=== PATIENT | female | born 1980 | race Caucasian/White ===

== ENCOUNTER 2020-06-12 15:33 | Outpatient (CLI) | payer BC, SELFPAY ==
[2020-06-12 16:22] LABS: SARS-CoV-2 Ag Negative (Negative)
== END 2020-06-12 15:34 | disposition home or self-care (01) ==
LOC: CHSLAB 15:35
PROVIDERS: PCP Internal Medicine; Visit Provider Internal Medicine
DX: Z20.828 Contact with and (suspected) exposure to other viral communicable diseases (principal)
CPT/HCPCS: 87426

== ENCOUNTER 2020-08-27 16:22 | Outpatient (CLI) | payer BC, SELFPAY ==
[2020-08-27 17:00] LABS: Anion Gap 9 mmol/L (8-16); Blood Urea Nitrogen 13 mg/dL (7-17); Calcium 9.6 mg/dL (8.4-10.2); Carbon Dioxide 26 mmol/L (22-30); Chloride 104 mmol/L (98-107); Estimated Glomerular Filt Rate > 60; Glucose 81 mg/dL (65-105); Sodium 139 mmol/L (137-145)
[2020-08-27 17:03] LABS: Hemoglobin A1C 4.6 % (<5.7)
[2020-08-27 17:31] LABS: Vitamin D 25 Hydroxy 30.2 ng/mL
[2020-08-30 04:10] LABS: Insulin Level Total 2.5 uIU/mL (<=19.6)
[2020-08-30 08:00] LABS: FSH 2.9 mIU/mL (***); LH 0.6 mIU/mL (***)
[2020-08-30 14:13] LABS: Testosterone Total 17 ng/dL (2-45)
== END 2020-08-27 16:23 | disposition home or self-care (01) ==
LOC: ANHLAB 16:23
PROVIDERS: PCP Internal Medicine; Visit Provider Obstetrics & Gynecology
DX: N95.1 Menopausal and female climacteric states (principal)
CPT/HCPCS: 36415; 80048; 82306; 83001; 83002; 83036; 83525; 84403; 84436; 84443

== ENCOUNTER 2021-05-09 17:11 | Outpatient (CLI) | payer BC, SELFPAY ==
[2021-05-09 18:13] LABS: Influenza A QL RT-PCR Negative (Negative); Influenza B QL RT-PCR Negative (Negative); SARS-CoV-2 RNA PCR Positive (Negative)
== END 2021-05-09 17:12 | disposition home or self-care (01) ==
LOC: CHSLAB 17:12
PROVIDERS: PCP Internal Medicine; Visit Provider Internal Medicine
DX: U07.1 COVID-19 (principal)
CPT/HCPCS: 87502; C9803; U0003; U0005

== ENCOUNTER 2022-01-29 13:39 | Outpatient (CLI) | payer BC, SELFPAY ==
[2022-01-29 14:52] LABS: SARS-CoV-2 RNA PCR Negative (Negative)
== END 2022-01-29 13:40 | disposition home or self-care (01) ==
LOC: CHSLAB 13:41
PROVIDERS: PCP Internal Medicine; Visit Provider Internal Medicine
DX: R05.9 Cough, unspecified (principal); J06.9 Acute upper respiratory infection, unspecified; Z20.822 Contact with and (suspected) exposure to COVID-19
CPT/HCPCS: C9803; U0003; U0005

== ENCOUNTER 2024-01-10 13:04 | Outpatient (CLI) | payer BC, SELFPAY ==
--- NOTE | ~2024-01-10 | MM_ITS ---
EXAMINATION: MM screening pedro BI w kailey HISTORY: Screening TECHNIQUE: Craniocaudal and mediolateral oblique 3-D tomosynthesis images were obtained and synthetic 2-D images were generated. CAD analysis was submitted and interpreted. COMPARISON: No prior mammogram is available for comparison at this institution. BREAST PARENCHYMAL COMPOSITION: There are scattered areas of fibroglandular density. FINDINGS: There is no evidence of suspicious mass, calcification, or architectural distortion to sugg est malignancy in either breast. There has been no suspicious interval change. IMPRESSION: 1. No mammographic evidence of malignancy. 2. Recommend routine screening mammography in one year. BI-RADS Category 1: Negative Reviewed, dictated and finalized at location B.
== END 2024-01-10 13:05 | disposition home or self-care (01) ==
LOC: CHSIMG 13:06
PROVIDERS: PCP Nurse Practitioner; Visit Provider Nurse Practitioner
DX: Z12.31 Encounter for screening mammogram for malignant neoplasm of breast (principal)
CPT/HCPCS: 77063; 77067

== ENCOUNTER 2024-05-24 09:07 | Emergency (ER) | payer BC, SELFPAY ==
[2024-05-24] VITALS (40 sets, daily range): BP systolic 100–145; BP diastolic 52–110; PULSE 62–87; RESP 14–116; TEMP 36.2–36.6; O2SAT 95–100
--- NOTE | ~2024-05-24 | XR_ITS ---
XR chest 1V portable Ordering provider: Jay Romo MD History: 43 years Female with . cough, SOB, weakness, chest tightness, fever X 2-3 days . Comparison: None. FINDINGS: MEDIASTINUM: The cardiac silhouette is not enlarged. LUNGS: No effusions or pneumothorax. Opacification in the right lower lobe suggestive of atelectasis versus pneumonia. OTHER: No free air under the diaphragm. IMPRESSION: Opacification lower lobe suggestive of atelectasis versus pneumonia. Reviewed, dictated and finalized at location A. AND PENCILS REPAIRER
--- NOTE | 2024-05-24 09:30 | ED_ITS ---
HPI - General Adult General Chief complaint: Dizziness Stated complaint: DIFFICULTY BREATHING Time Seen by Provider: 05/24/24 09:16 Source: patient Mode of arrival: ambulatory Limitations: no limitations History of Present Illness HPI narrative: 43-year-old female with a history of anxiety / depression presents to the ED with a 2 day history of -- chest discomfort Which is pleuritic in type. -- shortness of breath -- low-grade fever -- cough which is productive of mucoid purulent sputum Her sister and her daughter have been sick with an upper respiratory tract infection. the patient has been using an inhaler the past few days secondary to shortness of breath. Onset (ago): day(s) ( Two days) Associated symptoms: chest pain, cough, fever/chills and shortness of breath Related Data Home Medications Medication Instructions Recorded Confirmed buspirone 10 mg tablet 10 mg PO DAILY PRN Anxiety 05/19/19 11/08/20 escitalopram oxalate 20 mg tablet 20 mg PO DAILY 05/19/19 11/08/20 loratadine 10 mg tablet (Claritin) 10 mg PO DAILY 05/19/19 11/08/20 esomeprazole magnesium 20 mg 20 mg PO DAILY 08/27/20 11/08/20 capsule,delayed release Allergies Allergy/AdvReac Type Severity Reaction Status Date / Time morphine Allergy Unknown REDNESS Verified 05/24/24 09:27 AND WELTS ON ARM OF IV SITE Review of Systems Review of Systems: All systems reviewed & are unremarkable except as noted in HPI and below Constitutional: Constitutional: Reports as per HPI, Reports no additional constitutional complaints and Reports fever(s) Eyes: Eyes: Reports as per HPI and Reports no additional eye complaints ENT: Reports system reviewed and no additional complaints, except as documented, Reports as per HPI and Reports sore throat Cardiovascular: Cardiovascular: Reports as per HPI and Reports chest pain Respiratory: Respiratory: Reports as per HPI, Reports no additional respiratory complaints, Reports cough and Reports dyspnea Gastrointestinal: Gastrointestinal: Reports as per HPI and Reports no additional gastrointestinal complaints Genitourinary: Genitourinary: Reports no additional female genitourinary complaints and Reports as per HPI Musculoskeletal: Musculoskeletal: Reports no additional musculoskeletal complaints and Reports as per HPI Integumentary/Breasts: Skin/Breast: Reports system reviewed and no additional complaints, except as docu and Reports as per HPI Neurologic: Reports system reviewed and no additional complaints, except as documented and Reports as per HPI Psychiatric: Psychiatric: Reports no additional psychiatric complaints, Reports as per HPI and Reports anxiety Endocrine: Endocrine: Reports no additional endocrine complaints and Reports as per HPI Hematologic/Lymphatic: Hematologic/Lymphatic: Reports no additional hematologic/lymphatic complaints and Reports as per HPI Allergic/Immunologic: Allergic/Immunologic: Reports no additional allergic/immunologic complaints and Reports as per HPI PMFSH Past Medical History Medical History Anxiety Depression Missed x2 Obesity Vaginal delivery x1 Surgical History Surgical History History of dilation and curettage x2 History of endometrial ablation 05-26-19 History of tubal ligation Previous section x 3 Family History Family History Grandparent Diabetes mellitus Son Cerebrovascular accident in utero Social History Social History Smoking status: Never smoker Second hand tobacco smoke exposure: No Alcohol intake: current Substance use: unknown Exam Narrative: afebrile. Oxygen saturation of 100% on room air with a respiratory rate of 24. Blood pressure stable. Const: General: no acute distress Nutritional Appearance: well nourished Orientation/consciousness: patient oriented x3 Limitations: no limitations HENMT: Head: normal to inspection Ears: external ears normal Face/Nose/Sinus: Normal external nose present Face and sinus: normal facial exam Mouth: Yes Normal oral and palatal mucosa present Throat: posterior oropharynx normal Eyes: Conjunctivae: conjunctivae normal Pupils: Equal, round and reactive pupils present EOM: EOMs intact bilaterally Direct Ophthalmoscopy: no photophobia Neck: Neck: normal visual inspection, no lymphadenopathy and no meningeal signs Chest: Chest palpation & inspection: normal inspection of the chest Resp: Effort & Inspection: normal respiratory effort Auscultation: rhonchi Cardio: Rate: regular rate Rhythm: regular rhythm GI: GI Palp: Yes Soft to palpation Auscultation: normal bowel sounds : General: Yes no CVA tenderness Back/Spine/Pelvis: Back: no CVA tenderness Skin: General skin exam: normal color Rashes: no rashes Wounds: no wounds Neuro: General: patient oriented x3, moves all extremities, no meningeal signs, no focal motor deficits and CN's II-XI intact bilaterally Cranial nerves: Yes Nystagmus not present Speech: normal speech Gait exam (Neuro): Normal gait present Extrem: General: normal to inspection and no clubbing, cyanosis or edema Psych: Mental Status: mental status grossly normal Affect: normal affect Attitude: cooperative Course Course Emergency Course: Upper respiratory infection bronchitis with bronchospasm right lower lobe pneumonia Vital Signs Vital signs: Vital Signs Temperature 36.2 C L 05/24/24 09:07 Pulse Rate 72 05/24/24 09:07 Respiratory Rate 24 H 05/24/24 09:07 Blood Pressure 114/69 05/24/24 09:07 Pulse Oximetry 100 05/24/24 09:07 Oxygen Delivery Room Air 05/24/24 09:07 Temperature 36.2 C L 05/24/24 09:07 Pulse Rate 65 05/24/24 12:45 Respiratory Rate 16 05/24/24 12:31 Blood Pressure 102/52 L 05/24/24 12:31 Pulse Oximetry 100 05/24/24 12:31 Oxygen Delivery Room Air 05/24/24 09:25 Medical Decision Making MDM Narrative Medical decision making narrative: upper respiratory tract infection right lower lobe pneumonia bronchospasm Differential Diagnosis Differential Diagnosis: atelectasis. Aspiration pneumonia Medical Records Medical records reviewed: Yes I reviewed the external patient's medical records. Vital Signs Vital Signs: Vital Signs Temperature 36.2 C L 05/24/24 09:07 Pulse Rate 72 05/24/24 09:07 Respiratory Rate 24 H 05/24/24 09:07 Blood Pressure 114/69 05/24/24 09:07 Pulse Oximetry 100 05/24/24 09:07 Oxygen Delivery Room Air 05/24/24 09:07 Temperature 36.2 C L 05/24/24 09:07 Pulse Rate 65 05/24/24 12:45 Respiratory Rate 16 05/24/24 12:31 Blood Pressure 102/52 L 05/24/24 12:31 Pulse Oximetry 100 05/24/24 12:31 Oxygen Delivery Room Air 05/24/24 09:25 Lab Data Lab results reviewed: Yes I reviewed the patient's lab results. 05/24/24 09:52 05/24/24 09:52 Labs: Lab Results 05/24/24 05/24/24 05/24/24 Range/Units 09:44 09:50 09:52 WBC 5.1 (4.8-10.8) K/mm3 RBC 5.00 (4.20-5.40) M/mm3 Hgb 15.6 H (12.0-15.0) g/dL Hct 42.1 (35.0-49.0) % MCV 84.2 (78.0-102.0) fL MCH 31.2 H (27.0-31.0) pg MCHC 37.1 H (32-36) g/dL RDW 11.7 (11.6-14.4) % Plt Count 169 (150-420) K/mm3 MPV 8.9 L (9.2-11.8) fl Immature Gran % (Auto) 0.4 H (0.0-0.0) % Neut % (Auto) 79.8 H (50.0-70.0) % Lymph % (Auto) 13.0 L (18.0-42.0) % [place] % (Auto) 5.8 (2.0-11.0) % Eos % (Auto) 0.4 L (1.0-6.0) % Baso % (Auto) 0.6 (0.0-1.0) % Lymph # (Auto) 0.67 L (1.10-4.50) K/mm3 [place] # (Auto) 0.30 (0.10-0.90) K/mm3 Eos # (Auto) 0.02 (0.02-0.50) K/mm3 Baso # (Auto) 0.03 (0.00-0.10) K/mm3 Abs Immat Gran (auto) 0.02 H (0.00-0.00) K/mm3 Absolute Neuts (auto) 4.10 (1.70-7.20) K/mm3 Absolute Nucleated RBC 0.00 (0.00-0.00) K/mm3 Nucleated RBC % 0.0 (0-0.0) % Sodium 140 (136-145) mmol/L Potassium 3.1 L (3.5-5.1) mmol/L Chloride 102 (98-108) mmol/L Carbon Dioxide 25 (21-32) mmol/L Anion Gap 13 H (4-12) mmol/L BUN 7 (7-18) mg/dL Creatinine 0.91 (0.55-1.02) mg/dL Estim Creat Clear Calc 65 ml/min Estimated GFR > 60 (59 - ) Glucose 90 (70-99) mg/dL Calculated Osmolality 288 (285-295) mOsm/kg Lactic Acid 2.7 H (0.4-2.0) mmol/L Calcium 9.4 (8.5-10.1) mg/dL Total Bilirubin 0.8 (0.00-1.00) mg/dL AST 11 L (15-37) U/L ALT 18 (14-59) U/L Alkaline Phosphatase 72 (46-116) U/L Troponin I < 4.0 (0.00-60.4) ng/L NT-Pro-B Natriuret Pep 146 H (0-125) pg/mL Total Protein 7.0 (6.4-8.2) g/dL Albumin 3.6 (3.4-5.0) g/dL Lipase 21 (16-77) U/L Influenza A (RT-PCR) Negative (Negative) Influenza B (RT-PCR) Negative (Negative) RSV (RT-PCR) Negative (Negative) SARS-CoV-2 RNA (RT-PCR) Negative (Negative) Group A Strep (PCR) Not detected (Negative) 05/24/24 Range/Units 12:59 WBC (4.8-10.8) K/mm3 RBC (4.20-5.40) M/mm3 Hgb (12.0-15.0) g/dL Hct (35.0-49.0) % MCV (78.0-102.0) fL MCH (27.0-31.0) pg MCHC (32-36) g/dL RDW (11.6-14.4) % Plt Count (150-420) K/mm3 MPV (9.2-11.8) fl Immature Gran % (Auto) (0.0-0.0) % Neut % (Auto) (50.0-70.0) % Lymph % (Auto) (18.0-42.0) % [place] % (Auto) (2.0-11.0) % Eos % (Auto) (1.0-6.0) % Baso % (Auto) (0.0-1.0) % Lymph # (Auto) (1.10-4.50) K/mm3 [place] # (Auto) (0.10-0.90) K/mm3 Eos # (Auto) (0.02-0.50) K/mm3 Baso # (Auto) (0.00-0.10) K/mm3 Abs Immat Gran (auto) (0.00-0.00) K/mm3 Absolute Neuts (auto) (1.70-7.20) K/mm3 Absolute Nucleated RBC (0.00-0.00) K/mm3 Nucleated RBC % (0-0.0) % Sodium (136-145) mmol/L Potassium (3.5-5.1) mmol/L Chloride (98-108) mmol/L Carbon Dioxide (21-32) mmol/L Anion Gap (4-12) mmol/L BUN (7-18) mg/dL Creatinine (0.55-1.02) mg/dL Estim Creat Clear Calc ml/min Estimated GFR (59 - ) Glucose (70-99) mg/dL Calculated Osmolality (285-295) mOsm/kg Lactic Acid Pending (0.4-2.0) mmol/L Calcium (8.5-10.1) mg/dL Total Bilirubin (0.00-1.00) mg/dL AST (15-37) U/L ALT (14-59) U/L Alkaline Phosphatase (46-116) U/L Troponin I (0.00-60.4) ng/L NT-Pro-B Natriuret Pep (0-125) pg/mL Total Protein (6.4-8.2) g/dL Albumin (3.4-5.0) g/dL Lipase (16-77) U/L Influenza A (RT-PCR) (Negative) Influenza B (RT-PCR) (Negative) RSV (RT-PCR) (Negative) SARS-CoV-2 RNA (RT-PCR) (Negative) Group A Strep (PCR) (Negative) Discharge Plan Discharge Clinical Impression: Acute upper respiratory infection Pneumonia Qualifiers: Pneumonia type: due to unspecified organism Laterality: right Lung location: lower lobe of lung Qualified Code(s): J18.9 - Pneumonia, unspecified organism Patient Disposition: Home, Self-Care Condition: Stable Instructions: Antibiotic Form, Pneumonia (ED) Additional Instructions: advised the patient to stop escitalopram. Patient Language: Citizen Of [place] Prescriptions: New amoxicillin 500 mg tablet 1,000 mg PO TID Qty: 42 0RF azithromycin [Zithromax] 250 mg tablet 250 mg PO DAILY 4 Days Qty: 4 0RF Rx Instructions: start on day 2 of therapy No Action esomeprazole magnesium 20 mg capsule,delayed release(DR/EC) 20 mg PO DAILY buspirone 10 mg tablet 10 mg PO DAILY PRN (Reason: Anxiety) loratadine [Claritin] 10 mg Tablet 10 mg PO DAILY escitalopram oxalate 20 mg tablet 20 mg PO DAILY norgestimate-ethinyl estradiol [Tri-Linyah] 0.18/0.215/0.25 mg-35 mcg (28) tablet 1 tablet PO DAILY Qty: 84 0RF Follow-up/Referrals: Мария,Ashanti Jason MUSIC COPYIST [Primary Care Provider] - Time of Disposition: 13:27
--- NOTE | 2024-05-24 09:43 | ECG_ITS ---
Test Date: 2024-05-24 10:08:06 Measurements Intervals [place] Rate: 74 P: 47 MN: 120 QRS: 64 QRSD: 101 T: 47 QT: 422 QTc: 471 Interpretive Statements SINUS RHYTHM CONSIDER HIGH LATERAL INFARCT, AGE INDETERMINATE BASELINE ARTIFACT- I, II, III, AVF, V1-V3 ABNORMAL ECG No previous ECG available for comparison Electronically Signed On 05-24-2024 10:25:47 BOLT MAN by Gurvinder Herrera D.O.
[2024-05-24] MEDS: IPRATROPIUM 0.5 MG/ALBUTEROL SULFATE 2.5 MG AMPUL.NEB 3 ML INHALATION (09:57)
[2024-05-24 10:01] LABS: Basophils Absolute Auto 0.03 K/mm3 (0.00-0.10); Basophils Percent Auto 0.6 % (0.0-1.0); Eosinophils Absolute Auto 0.02 K/mm3 (0.02-0.50); Eosinophils Percent Auto 0.4 % (1.0-6.0); Hematocrit 42.1 % (35.0-49.0); Hemoglobin 15.6 g/dL (12.0-15.0); Immature Granulocyte Absolute 0.02 K/mm3 (0.00-0.00); Immature Granulocyte Percent A 0.4 % (0.0-0.0); Lymphocytes Absolute Auto 0.67 K/mm3 (1.10-4.50); Mean Corpuscular HGB Conc 37.1 g/dL (32-36); Mean Corpuscular Hemoglobin 31.2 pg (27.0-31.0); Mean Corpuscular Volume 84.2 fL (78.0-102.0); Mean Platelet Volume 8.9 fl (9.2-11.8); Monocytes Percent Auto 5.8 % (2.0-11.0); Neutrophils Percent Auto 79.8 % (50.0-70.0); Platelet Count Result 169 K/mm3 (150-420); Red Cell Distribution Width 11.7 % (11.6-14.4); White Blood Count 5.1 K/mm3 (4.8-10.8)
[2024-05-24 10:18] LABS: Lactic Acid Reflex 2.7 mmol/L (0.4-2.0)
[2024-05-24 10:22] LABS: Alanine Aminotransferase 18 U/L (14-59); Albumin Level 3.6 g/dL (3.4-5.0); Alkaline Phosphatase 72 U/L (46-116); Anion Gap 13 mmol/L (4-12); Aspartate Amino Transferase 11 U/L (15-37); Bilirubin,Total 0.8 mg/dL (0.00-1.00); Blood Urea Nitrogen 7 mg/dL (7-18); Calcium 9.4 mg/dL (8.5-10.1); Carbon Dioxide 25 mmol/L (21-32); Chloride 102 mmol/L (98-108); Estimated CRCL calculation 65 ml/min; Estimated Glomerular Filt Rate > 60; Glucose 90 mg/dL (70-99); Lipase 21 U/L (16-77); NT Pro B Type Natriuretic Pept 146 pg/mL (0-125); Osmolality Calculated 288 mOsm/kg (285-295); Potassium 3.1 mmol/L (3.5-5.1); Sodium 140 mmol/L (136-145)
[2024-05-24 10:26] LABS: Troponin I < 4.0 ng/L (0.00-60.4)
[2024-05-24 10:26] LABS: Strep Group A RT-PCR NOT DETECTED (Negative)
[2024-05-24 10:43] LABS: SARS-CoV-2 RNA PCR Negative (Negative)
[2024-05-24 10:46] LABS: Influenza A QL RT-PCR Negative (Negative); Influenza B QL RT-PCR Negative (Negative); RSV RNA, RT-PCR Negative (Negative)
[2024-05-24] MEDS: LACTATED RINGERS 1,000 ML 999 ML IV CONT (11:50)
[2024-05-24] MEDS: AZITHROMYCIN 500 MG/NS 250 ML 500 MG/250 ML BAG 250 MG IVPB (12:43)
[2024-05-24 12:59] LABS: Reflex Lactic Acid Yes or No Add Lactic
[2024-05-24 13:32] LABS: Lactic Acid 1.1 mmol/L (0.4-2.0)
--- NOTE | 2024-05-25 12:32 | PC.NURSE ---
Addendum entered by Keesha Sam RN 05/25/24 12:35: below note should read: preliminary blood cultures x2 reviewed. no growth to date. Original Note: final blood culture reports x2 reviewed. no growth to date. no change in plan of care.
--- NOTE | 2024-05-30 16:01 | PC.NURSE ---
FINAL BLOOD CULTURE RESULTS X2: NO GROWTH AFTER 5 DAYS.
== END 2024-05-24 13:45 | disposition home or self-care (01) ==
PROVIDERS: Emergency Provider Internal Medicine Critical Care Medicine; PCP Nurse Practitioner
DX: J18.9 Pneumonia, unspecified organism (principal); J06.9 Acute upper respiratory infection, unspecified; Z20.822 Contact with and (suspected) exposure to COVID-19
CPT/HCPCS: 36415; 71045; 80053; 83605; 83690; 83880; 84484; 85025; 87040; 87637; 87651; 93005; 94640; 96365; 96367; 99284; J0456; J0696; J7120

== ENCOUNTER 2025-02-06 07:31 | Outpatient (CLI) | payer BC, OTHER, SELFPAY ==
--- NOTE | ~2025-02-06 | MM_ITS ---
EXAMINATION: MM screening pedro BI w kailey HISTORY: Screening TECHNIQUE: Craniocaudal and mediolateral oblique 3-D tomosynthesis images were obtained and synthetic 2-D images were generated. CAD analysis was submitted and interpreted. COMPARISON: 01/10/2024. BREAST PARENCHYMAL COMPOSITION: There are scattered areas of fibroglandular density. FINDINGS: There is no evidence of suspicious mass, calcification, or architectural distortion to sug gest malignancy in either breast. IMPRESSION: 1. No mammographic evidence of malignancy. 2. Recommend routine screening mammography in one year. BI-RADS Category 1: Negative Reviewed, dictated and finalized at location B.
--- OUTSIDE RECORDS SUMMARY | 2025-02-06 07:39 | XMS_ITS | Clinical Summary ---
Author Organization [facility] Care Team Providers Care Senior Net Application Developer Name Role Phone Unavailable Primary Care Provider Unavailabl e Social History Tobacco Use Types Packs/Day Years Used Date Smoking Tobacco: Never Assessed Comments Unknown Sex and Gender Information Value Date Recorded Sex Assigned at Not on file Legal Sex Female 8:48 PM CDT Gender Identity Not on file Sexual Orientation Not on file Plan of Treatment Not on file
--- OUTSIDE RECORDS SUMMARY | 2025-02-06 07:39 | XMS_ITS | Clinical Summary ---
Author Organization [facility] Address [address] [place] [id number] Care Team Providers Care Doll Wig Maker Name Role Phone Ashanti Hsieh SERVICE WRITER ADVISOR Primary Care Provider [phone] Encounters Date Type Department Care Team Description 12/21/2024 10:00 AM CDT - 12/21/2024 11:59 PM CDT Hospital Encounter [facility] [address] [place] [id number] Olvin Swenson MD Hankins, Nichole K, OT Discharge Disposition: Home or Self Care (Routine Discharge) 12/21/2024 Travel 12/19/2024 9:00 AM CDT - 12/19/2024 11:59 PM CDT Hospital Encounter [facility] [address] [place] [id number] Olvin Swenson MD Schmidt, Halley M, PAYNE Discharge Disposition: Home or Self Care (Routine Discharge) 12/19/2024 Travel 12/15/2024 9:30 AM CDT - 12/15/2024 11:59 PM CDT Hospital Encounter [facility] [address] [place] [id number] Olvin Swenson MD Hankins, Nichole K, OT Discharge Disposition: Home or Self Care (Routine Discharge) 12/15/2024 Travel from Last 3 Months Social History Tobacco Use Types Packs/Day Years Used Date Smoking Tobacco: Never Assessed Comments Unknown Sex and Gender Information Value Date Recorded Sex Assigned at Not on file Legal Sex Female 9:55 AM CDT Gender Identity Not on file Sexual Orientation Not on file Plan of Treatment Health Maintenance Due Date Last Done Comments Cervical Cancer Screening Pa p Smear (Age 30 to 64) Every 3 Years 1981 Annual Physical 1984 Hepatitis C 1999 DTaP, Tdap and Td Vaccines ( 1 - Tdap) 2000 Hepatitis B Vaccines (1 of 3 - 19+ 3-dose series) 2000 HPV Vaccines (1 - 3-dose SCD M series) 2008 Cervical Cancer Screening Pa p with HPV Testing (Age 30 to 64) Every 5 Years 2011 Cervical Cancer Screening wi th HPV 2011 Mammogram Screening 2021 COVID-19 Vaccine (3 - 2023-2 5 season) 2024 08/17/2020, 07/20/2020 Meningococcal B Vaccine Aged Out No l onger eligible based on patient's age to complete this topic Meningococcal Vaccine Aged Out No elmira shae eligible based on patient's age to complete this topic Pneumococcal Vaccine: Pediatrics (0 to 5 Years) and At-Risk Patients (6 to 49 Years) Aged Out No longer eligible b ased on patient's age to complete this topic RSV Immunizations Under 20 Months Aged Out No longer eligible b ased on patient's age to complete this topic Insurance [facility] Care Teams Doll Wig Maker Relationship Specialty Start Date End Date Ashanti Hsieh FNP [address] [place] [phone] PCP - General NURSE PRACTITIONER 12/08/24
--- OUTSIDE RECORDS SUMMARY | 2025-02-06 07:39 | XMS_ITS | Clinical Summary ---
Author Organization [facility] [address] [facility] [address] [place] [address] Phone Care Team Providers Care Fuel Technician Name Role Phone Unavailable Primary Care Provider Unavailabl e Social History Tobacco Use Types Packs/Day Years Used Date Smoking Tobacco: Never Assessed Comments Unknown Sex and Gender Information Value Date Recorded Sex Assigned at Not on file Legal Sex Female 8:39 AM CDT Gender Identity Not on file Sexual Orientation Not on file Plan of Treatment Health Maintenance Due Date Last Done Comments HPV VACCINES (1 - 3-dose series) 1996 DTAP/TDAP/TD VACCINES (1 - Tdap) 2000 HEPATITIS B VACCINES (1 of 3 - 19+ 3-dose series) 09/2000 HPV/Cotest (21-29) 2002 CERVICAL CANCER SCREENING 2011 HPV/Cotest (30-65) 2011 PAP SMEAR 2011 BREAST CANCER SCREENING 2021 INFLUENZA VACCINE (#1) 2025 Insurance BS BLUE ACCESS/TRUE BLUE PPO HEALTHCARE
[2025-02-06 08:09] LABS: Hematocrit 48.1 % (35.0-49.0); Hemoglobin 16.7 g/dL (12.0-15.0); Immature Granulocyte Percent A 0.0 % (0.0-0.0); Lymphocytes Absolute Auto 2.03 K/mm3 (1.10-4.50); Mean Corpuscular HGB Conc 34.7 g/dL (32-36); Mean Corpuscular Hemoglobin 29.7 pg (27.0-31.0); Mean Corpuscular Volume 85.4 fL (78.0-102.0); Nucleated Red Blood Cells Absolute Auto 0.00 K/mm3 (0.00-0.00); Nucleated Red Blood Cells Perc 0.0 % (0-0.0); Platelet Count Result 256 K/mm3 (150-420); Red Blood Count 5.63 M/mm3 (4.20-5.40); White Blood Count 5.7 K/mm3 (4.8-10.8)
[2025-02-06 08:39] LABS: Alanine Aminotransferase 14 U/L (6-35); Albumin Level 5.1 g/dL (3.5-5.1); Alkaline Phosphatase 51 U/L (38-126); Anion Gap 8 mmol/L (4-12); Aspartate Amino Transferase 21 U/L (14-36); Bilirubin,Total 0.9 mg/dL (0.2-1.3); Blood Urea Nitrogen 11 mg/dL (7-17); Calcium 10.5 mg/dL (8.4-10.2); Carbon Dioxide 24 mmol/L (22-30); Chloride 109 mmol/L (98-107); Cholesterol 189 mg/dL (0-200); Estimated Glomerular Filt Rate > 60; Glucose 104 mg/dL (65-110); HDL Direct 61 mg/dL; Osmolality Calculated 291 mOsm/kg (285-295); Potassium 4.3 mmol/L (3.4-5.0); Sodium 141 mmol/L (137-145); Total Protein 7.4 g/dL (6.3-8.2); Triglycerides 106 mg/dL (<150)
[2025-02-06 09:09] LABS: Thyroid Stimulating Hormone 1.210 uIU/mL (0.465-4.680)
== END 2025-02-06 07:32 | disposition home or self-care (01) ==
PROVIDERS: PCP Nurse Practitioner; Visit Provider Nurse Practitioner
DX: Z12.31 Encounter for screening mammogram for malignant neoplasm of breast (principal); E03.9 Hypothyroidism, unspecified; Z79.899 Other long term (current) drug therapy; Z13.6 Encounter for screening for cardiovascular disorders
CPT/HCPCS: 36415; 77063; 77067; 80053; 80061; 84443; 85025

== ENCOUNTER 2025-02-16 07:20 | Outpatient (CLI) | payer BC, OTHER, SELFPAY ==
[2025-02-16 08:20] LABS: Magnesium 2.0 mg/dL (1.6-2.3)
[2025-02-17 15:09] LABS: Calcium, Ionized 5.0 mg/dL (4.5-5.6)
== END 2025-02-16 07:21 | disposition home or self-care (01) ==
PROVIDERS: PCP Nurse Practitioner; Visit Provider Nurse Practitioner
DX: E83.52 Hypercalcemia (principal)
CPT/HCPCS: 36415; 82330; 83735; 83970